=== PATIENT | male | born 1960 | race Caucasian/White ===

== ENCOUNTER 2020-06-19 06:33 | Emergency (ER) | payer MEDICARE, OTHER ==
[~2020-06-19] VITALS: Ht 175.3 cm; Wt 83.0 kg
[2020-06-19 06:33] VITALS: BP 168/70
[~2020-06-19 06:33] MED LIST: INSU100C4 SQ; INSU100V8 SQ; LEVO25TA55 PO; METF10007 PO
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
--- NOTE | 2020-06-19 07:02 | RAD ---
AP chest. HISTORY: Short of air, dialysis patient AP view was taken of the chest. Heart is enlarged. There are stents in the brachiocephalic and subclavian vessels on the right. There are small effusions. There is hazy infiltrates or pulmonary edema in the lungs. IMPRESSION: 1. Cardiomegaly. 2. Small pleural effusions. 3. Hazy infiltrates or pulmonary edema. Electronically signed by: Kamar Ibarra MD (06/19/2020 6:59 AM) [id number]
[2020-06-19 07:43] LABS: ALBUMIN 2.9 g/dL (3.4-5.0); ALBUMIN/GLOBULIN RATIO 0.8 (1.0-1.7); CALCIUM 8.8 mg/dL (8.5-10.1); CREATININE 4.5 mg/dL (0.7-1.3); GFR 13.5; POTASSIUM 3.7 mmol/L (3.5-5.1); TOTAL BILIRUBIN 0.6 mg/dL (0.2-1.0); TOTAL PROTEIN 6.5 g/dL (6.4-8.2)
[2020-06-19 07:44] LABS: HEMOGLOBIN 8.1 g/dL (13.0-17.5); RED BLOOD COUNT 2.66 x10^6/uL (4.30-5.70); WHITE BLOOD COUNT 5.6 x10^3/uL (4.0-11.0)
[2020-06-19 07:45] LABS: RED CELL DISTRIBUTION WIDTH 19.3 % (11.5-14.5)
== END 2020-06-19 09:24 | disposition home or self-care (01) ==
LOC: ER 06:33
DX: T20.14XA Burn of first degree of nose (septum), initial encounter (principal); X08.8XXA Exposure to other specified smoke, fire and flames, initial encounter; Y93.89 Activity, other specified; Y92.89 Other specified places as the place of occurrence of the external cause; Y99.8 Other external cause status; R06.02 Shortness of breath; J81.1 Chronic pulmonary edema; E11.9 Type 2 diabetes mellitus without complications; F17.210 Nicotine dependence, cigarettes, uncomplicated; Z99.2 Dependence on renal dialysis; Z20.828 Contact with and (suspected) exposure to other viral communicable diseases
CPT/HCPCS: 36415; 71045; 80053; 85027; 87426; 99284; C9803; U0003

== ENCOUNTER 2020-06-20 17:34 | Emergency (ER) | payer MEDICARE ==
[~2020-06-20] VITALS: Ht 175.3 cm; Wt 80.1 kg
[2020-06-20] MEDS ORDERED: 0.9 % SODIUM CHLORIDE 10 ML DISP.SYRIN. IV PRN (17:45)
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
[2020-06-20] MEDS ORDERED: ACETAMINOPHEN 500 MG TABLET PO ONE (18:00)
[2020-06-20 18:14] LABS: BASO % 1 % (0-3); EOS % 0 % (0-3); HEMATOCRIT 22.7 % (39.0-53.0); HEMOGLOBIN 7.5 g/dL (13.0-17.5); LYMPH # 0.4 x10^3/uL (1.0-4.8); LYMPH % 6 % (24-48); MEAN CORPUSCULAR HEMOGLOBIN 31 pg (25-35); MEAN CORPUSCULAR HGB CONC 33 g/dL (31-37); MEAN CORPUSCULAR VOLUME 94 fL (79-100); MONO # 0.4 x10^3/uL (0.0-1.1); MONO % 7 % (0-9); NEUT # 5.5 x10^3uL (1.8-7.7); NEUT % 87 % (31-73); PLATELET COUNT 113 x10^3/uL (140-400); RED BLOOD COUNT 2.41 x10^6/uL (4.30-5.70); WHITE BLOOD COUNT 6.4 x10^3/uL (4.0-11.0)
[2020-06-20 18:16] LABS: ANION GAP 9 (6-14); BLOOD UREA NITROGEN 15 mg/dL (8-26); BUN/CREATININE RATIO 4 (6-20); CARBON DIOXIDE 28 mmol/L (21-32); CHLORIDE 99 mmol/L (98-107); CREATININE 3.8 mg/dL (0.7-1.3); GFR 16.4; GLUCOSE 206 mg/dL (70-99); POTASSIUM 4.2 mmol/L (3.5-5.1); SODIUM 136 mmol/L (136-145)
[2020-06-20 18:33] LABS: ALBUMIN 2.6 g/dL (3.4-5.0); ALBUMIN/GLOBULIN RATIO 0.8 (1.0-1.7); ALK PHOS 156 U/L (46-116); ALT (SGPT) 10 U/L (16-63); AST (SGOT) 19 U/L (15-37); MAGNESIUM 1.8 mg/dL (1.8-2.4); TOTAL BILIRUBIN 1.1 mg/dL (0.2-1.0); TOTAL PROTEIN 5.9 g/dL (6.4-8.2)
--- NOTE | 2020-06-20 18:47 | RAD ---
INDICATION: Reason: weakness / Spl. Instructions: / History: COMPARISON: March 01, 2018 TECHNIQUE: Axial CT images obtained through the head without intravenous contrast. One or more of the following individualized dose reduction techniques were utilized for this examination: 1. Automated exposure control; 2. Adjustment of the mA and/or kV according to patient size; 3. Use of iterative reconstruction technique. FINDINGS: No intracranial hemorrhage. No midline shift. Basal cisterns patents. Ventricles and sulci are globally prominent. No acute osseous abnormality. Partial opacification of the left mastoid air cells. Scattered foci of low attenuation within the white matter. IMPRESSION: 1. No acute intracranial hemorrhage. 2. Scattered regions of low attenuation within the white matter. Non-specific in nature but frequently secondary to small vessel ischemic disease. If there is concern for acute causes clinically MRI could better assess acuity. 3. Prominence of ventricles and sulci which is frequently secondary to age related volume loss. Electronically signed by: Braden Bhandari MD (06/20/2020 6:44 PM) [id number]
--- NOTE | 2020-06-20 19:06 | RAD ---
Exam: Chest one view INDICATION: Weakness, patient on dialysis TECHNIQUE: Frontal view of the chest Comparisons: 06/19/2020 FINDINGS: Heart is mildly enlarged. Pulmonary vessels are within normal limits. Patchy bibasilar airspace disease. Small bilateral pleural effusions IMPRESSION: Patchy bibasilar airspace disease, similar to prior exam. Electronically signed by: Geovanna Fitch MD (06/20/2020 7:04 PM) [facility]
[2020-06-20 23:57] VITALS: BP 120/57
--- NOTE | 2020-06-21 15:19 | NUR ---
IP: notified IP at [facility] of COVID result.
== END 2020-06-21 00:28 | disposition short-term general hospital (02) ==
LOC: ER 17:34
DX: R50.9 Fever, unspecified (principal); B96.1 Klebsiella pneumoniae [K. pneumoniae] as the cause of diseases classified elsewhere; Z20.828 Contact with and (suspected) exposure to other viral communicable diseases; E11.22 Type 2 diabetes mellitus with diabetic chronic kidney disease; N18.6 End stage renal disease; R53.1 Weakness; J44.9 Chronic obstructive pulmonary disease, unspecified; F17.210 Nicotine dependence, cigarettes, uncomplicated; L97.529 Non-pressure chronic ulcer of other part of left foot with unspecified severity; Z99.2 Dependence on renal dialysis
CPT/HCPCS: 36415; 70450; 71045; 80053; 82553; 83605; 83735; 83880; 84443; 84484; 85025; 85610; 85730; 87040; 87077; 87205; 99285; C9803; U0003

== ENCOUNTER 2020-06-29 13:30 | Emergency (ER) | payer MEDICARE ==
[~2020-06-29] VITALS: Ht 175.3 cm; Wt 80.1 kg
--- NOTE | 2020-06-29 13:55 | PHYS DOC ---
Past History Past Medical History: COPD, Diabetes, Renal Failure Past Surgical History: No Surgical History Smoking: Cigarettes Alcohol Use: None Drug Use: None Adult General Chief Complaint Chief Complaint: ALTERED MENTAL STATUS HPI HPI Patient is a 60yo male who presents for decreased mental status. History is provided by EMS given patient mentation. They report patient was recently discharged from [facility] for unknown condition to fpc. Local provider was on scene today when staff reported decreased level of consciousness prompting them to call EMS for transport to our facility. On arrival, patient's vitals were remarkable for hypotension ~90s/50s, bradycardia ~50s, and hypoxia in the 80s, it is unknown if patient typically uses supplemental oxygen. He is presumably a full code Review of Systems Review of Systems Fourteen body systems of review of systems have been reviewed. See HPI for pertinent positives and negative responses, other jones all other systems are negative, non-pertinent or non-contributory Allergies Allergies Allergies Coded Allergies Type Severity Reaction Last Updated Verified No Known Drug Allergies 11/23/13 No Physical Exam Physical Exam Constitutional: Poor hygiene, GCS 10 and maintaining airway, HENT: Normocephalic, atraumatic, bilateral external ears normal, oropharynx moist, poor dentition, no oral exudates, nose normal. Eyes: PERRLA, EOMI, conjunctiva normal, no discharge. Neck: Normal range of motion, no tenderness, supple, no stridor. Cardiovascular: Heart rate bradycardic, sinus rhythm, no murmurs rubs or gallops Lungs & Thorax: Inc work of breathing, mild resp distress with accessory muscle use of neck and upper abdomen noted Abdomen: Bowel sounds normal, soft, no tenderness, no masses, no pulsatile masses. Nonsurgical abdomen, no peritoneal signs Skin: Warm, dry, no erythema, no rash. Back: No tenderness, no CVA tenderness. Extremities: No tenderness, no cyanosis, no clubbing, ROM intact, no edema. RUE HD fistula noted Neurologic: Alert and oriented X 3, grossly normal motor & sensory function, no focal deficits noted. Psychologic: Affect normal, judgement normal, mood normal. Current Patient Data Vital Signs Vital Signs Date Time Temp Pulse Resp B/P (MAP) Pulse Ox O2 Delivery O2 Flow Rate FiO2 06/29/20 18:00 44 16 112/56 (74) 100 BiPAP/CPAP 06/29/20 16:30 15.0 06/29/20 13:30 97.0 Lab Results Laboratory Tests Test 06/29/20 13:51 06/29/20 15:02 White Blood Count 6.6 x10^3/uL (4.0-11.0) Red Blood Count 2.30 x10^6/uL (4.30-5.70) Hemoglobin 7.0 g/dL (13.0-17.5) Hematocrit 22.0 % (39.0-53.0) Mean Corpuscular Volume 96 fL (79-100) Mean Corpuscular Hemoglobin 31 pg (25-35) Mean Corpuscular Hemoglobin Concent 32 g/dL (31-37) Red Cell Distribution Width 18.3 % (11.5-14.5) Platelet Count 103 x10^3/uL (140-400) Neutrophils (%) (Auto) 69 % (31-73) Lymphocytes (%) (Auto) 16 % (24-48) Monocytes (%) (Auto) 9 % (0-9) Eosinophils (%) (Auto) 3 % (0-3) Basophils (%) (Auto) 2 % (0-3) Neutrophils # (Auto) 4.5 x10^3uL (1.8-7.7) Lymphocytes # (Auto) 1.0 x10^3/uL (1.0-4.8) Monocytes # (Auto) 0.6 x10^3/uL (0.0-1.1) Eosinophils # (Auto) 0.2 x10^3/uL (0.0-0.7) Basophils # (Auto) 0.2 x10^3/uL (0.0-0.2) Bedside Venous pH 7.45 (7.32-7.42) Bedside Venous pCO2 45 mmHg (41-51) Bedside Venous pO2 132 mmHg (20-40) Venous Blood HCO3 31 mmol/L (24-28) POC Venous O2 Saturation (Aaron) 99 % Bedside FiO2 100 Sodium Level 137 mmol/L (136-145) Potassium Level 3.4 mmol/L (3.5-5.1) Chloride Level 98 mmol/L (98-107) Carbon Dioxide Level 32 mmol/L (21-32) Anion Gap 7 (6-14) Blood Urea Nitrogen 24 mg/dL (8-26) Creatinine 4.2 mg/dL (0.7-1.3) Estimated GFR (Cockcroft-Gault) 14.6 BUN/Creatinine Ratio 6 (6-20) Glucose Level 67 mg/dL (70-99) Lactic Acid Level 1.1 mmol/L (0.4-2.0) Calcium Level 9.5 mg/dL (8.5-10.1) Phosphorus Level 2.5 mg/dL (2.6-4.7) Magnesium Level 2.2 mg/dL (1.8-2.4) Total Bilirubin 0.8 mg/dL (0.2-1.0) Aspartate Amino Transf (AST/SGOT) 17 U/L (15-37) Alanine Aminotransferase (ALT/SGPT) 20 U/L (16-63) Alkaline Phosphatase 788 U/L (46-116) Ammonia < 10 mcmol/L (11-34) Creatine Kinase 16 U/L (39-308) Troponin I Quantitative < 0.017 ng/mL (0-0.055) LA-Sag-Z-Type Natriuretic Peptide > 50258 pg/mL (0-124) Total Protein 6.0 g/dL (6.4-8.2) Albumin 2.4 g/dL (3.4-5.0) Albumin/Globulin Ratio 0.7 (1.0-1.7) Salicylates Level < 2.8 mg/dL (2.8-20.0) Salicylate Last Dose Date 1400 Salicylate Last Dose Time 06/29/20 Acetaminophen Level < 2.0 mcg/mL (10-30) Acetaminophen Last Dose Date 1400 Acetaminophen Last Dose Time 06/29/2020 Ethyl Alcohol Level < 10 mg/dL (0-10) Glucose (Fingerstick) 169 mg/dL (70-99) EKG EKG EKG ordered and interpreted by myself at 1354 hrs. as sinus bradycardia at 55 bpm, prolonged QTC at 483, right axis deviation, right bundle branch block, no STEMI Radiology/Procedures Radiology/Procedures PROCEDURE: PORTABLE CHEST 1V PORTABLE CHEST 1V INDICATION: AMS . COMPARISON STUDY: 06/20/2020. FINDINGS: Lungs: Normal lung volume. Progression of patchy bilateral heterogeneous opacities. Indistinct central vasculature. Pleura: Small bilateral pleural effusions. Heart and Mediastinum: Cardiomegaly. Atherosclerotic thoracic aorta. IMPRESSION: 1. Progression of patchy bilateral heterogeneous opacities, likely pulmonary edema or multifocal infection. 2. Small bilateral pleural effusions. Electronically signed by: Jun Boo MD (06/29/2020 2:23 PM) [id number] Heart Score Risk Factors: Risk Factors: DM, Current or recent (<one month) smoker, HTN, HLP, family history of CAD, obesity. Risk Scores: Risk Factors: DM, Current or recent (<one month) smoker, HTN, HLP, family history of CAD, obesity. Course & Med Decision Making Course & Med Decision Making Pertinent Labs and Imaging studies reviewed. (See chart for details) Patient stabilized and condition improved greatly following administration of Bipap and IV Lasix Concern for fluid overload vs infectious process and so, Rocephin and Azithromycin administered. Case discussed with Dr. Rider, hospitalist at [facility] who recently cared for and discharged patient, was able to update me on patient's PMH and recent events. Joint decision to transfer patient back to [facility] for continued medical care and nephrology consultation as patient likely suffering from fluid overload that will resolve with HD Patient updated on this plan of care and amenable. All questions and concerns addressed prior to ED departure in stable condition Dragon Disclaimer Dragon Disclaimer This electronic medical record was generated, in whole or in part, using a voice recognition dictation system. Departure Departure: Impression: Primary Impression: Acute respiratory distress Additional Impressions: Pneumonia End stage kidney disease Disposition: 02 DC/TRF OTHER SHORT TERM HOS ([facility]) Admitting Physician: Other (dr rider) Condition: STABLE Referrals: SRAVANTHI MEJÍA MD (PCP) Problem Qualifiers THONY KHAN DO Jun 29, 2020 13:55
[2020-06-29 14:21] LABS: BASO # 0.2 x10^3/uL (0.0-0.2); BASO % 2 % (0-3); EOS # 0.2 x10^3/uL (0.0-0.7); EOS % 3 % (0-3); LYMPH % 16 % (24-48); MEAN CORPUSCULAR HEMOGLOBIN 31 pg (25-35); MEAN CORPUSCULAR HGB CONC 32 g/dL (31-37); MEAN CORPUSCULAR VOLUME 96 fL (79-100); MONO # 0.6 x10^3/uL (0.0-1.1); MONO % 9 % (0-9); NEUT # 4.5 x10^3uL (1.8-7.7); NEUT % 69 % (31-73); PLATELET COUNT 103 x10^3/uL (140-400); RED CELL DISTRIBUTION WIDTH 18.3 % (11.5-14.5); WHITE BLOOD COUNT 6.6 x10^3/uL (4.0-11.0)
--- NOTE | 2020-06-29 14:23 | EKG ---
[facility] ED [facility] [address] [place] [id number] Test Date: 2020-06-29 Test Time: 13:49:14 Pat Name: NOA BRUSH Department: Room: Gender: M Flow Manager: : 1960 Requested By: THONY KHAN Order Number: [id number] Reading MD: Dany Brown Measurements Intervals [place] Rate: 55 P: UT: QRS: 253 QRSD: 138 T: -3 QT: 502 QTc: 483 Interpretive Statements IRREGULAR RHYTHM, NO P-WAVE FOUND LEFT ANTERIOR FASCICULAR BLOCK RIGHT BUNDLE BRANCH BLOCK ABNORMAL ECG Electronically Signed On 07-02-2020 10:55:41 [employer] by Dany Brown
[2020-06-29 14:26] LABS: ANION GAP 7 (6-14); BLOOD UREA NITROGEN 24 mg/dL (8-26); BUN/CREATININE RATIO 6 (6-20); CALCIUM 9.5 mg/dL (8.5-10.1); CARBON DIOXIDE 32 mmol/L (21-32); CHLORIDE 98 mmol/L (98-107); CREATININE 4.2 mg/dL (0.7-1.3); GFR 14.6; GLUCOSE 67 mg/dL (70-99); POTASSIUM 3.4 mmol/L (3.5-5.1); SODIUM 137 mmol/L (136-145)
--- NOTE | 2020-06-29 14:26 | RAD ---
PORTABLE CHEST 1V INDICATION: AMS . COMPARISON STUDY: 06/20/2020. FINDINGS: Lungs: Normal lung volume. Progression of patchy bilateral heterogeneous opacities. Indistinct central vasculature. Pleura: Small bilateral pleural effusions. Heart and Mediastinum: Cardiomegaly. Atherosclerotic thoracic aorta. IMPRESSION: 1. Progression of patchy bilateral heterogeneous opacities, likely pulmonary edema or multifocal infection. 2. Small bilateral pleural effusions. Electronically signed by: Jun Boo MD (06/29/2020 2:23 PM) [id number]
[2020-06-29 14:39] LABS: ALBUMIN 2.4 g/dL (3.4-5.0); ALBUMIN/GLOBULIN RATIO 0.7 (1.0-1.7); ALK PHOS 788 U/L (46-116); ALT (SGPT) 20 U/L (16-63); AST (SGOT) 17 U/L (15-37); MAGNESIUM 2.2 mg/dL (1.8-2.4); PHOSPHORUS 2.5 mg/dL (2.6-4.7); TOTAL BILIRUBIN 0.8 mg/dL (0.2-1.0)
[2020-06-29 14:45] LABS: ACETAMIN < 2.0 mcg/mL (10-30); ETHANOL < 10 mg/dL (0-10); SALIC < 2.8 mg/dL (2.8-20.0)
[2020-06-29] MEDS ORDERED: DEXTROSE 50% 25 GM / 50ML DISP.SYRIN. IV ONE ×3 (14:45→14:46)
[2020-06-29] MEDS ORDERED: AZITHROMYCIN 500 MG in IV NORMAL SALINE 250ML 250 ML IV ONE (14:45)
[2020-06-29] MEDS ORDERED: IV NORMAL SALINE 100ML 100 ML ONE (15:18)
[2020-06-29] MEDS ORDERED: FUROSEMIDE 40 MG/4 ML VIAL IVP ONE (16:15)
[2020-06-29] MEDS ORDERED: IV NORMAL SALINE 250ML 250 ML ONE (16:54)
[2020-06-29] MEDS ORDERED: AZITHROMYCIN 500 MG VIAL. IV ONE (16:54)
[2020-06-29 18:00] VITALS: BP 112/56
== END 2020-06-29 18:29 | disposition short-term general hospital (02) ==
LOC: ER 13:30
DX: R06.03 Acute respiratory distress (principal); J18.9 Pneumonia, unspecified organism; E11.22 Type 2 diabetes mellitus with diabetic chronic kidney disease; N18.6 End stage renal disease; J44.9 Chronic obstructive pulmonary disease, unspecified; F17.210 Nicotine dependence, cigarettes, uncomplicated
CPT/HCPCS: 36415; 51702; 71045; 80053; 80329; 82140; 82550; 82803; 82947; 83605; 83735; 83880; 84100; 84484; 85025; 93005; 94660; 96365; 96368; 96375; 99285; G0480; J0456; J0696; J1940; J7050

== ENCOUNTER → 2021-04-29 | Outpatient (CLI) | payer MEDICARE, OTHER ==
--- NOTE | 2021-04-29 18:16 | RAD ---
INDICATION: Reason: LT LEG PAIN / Spl. Instructions: / History: COMPARISON: None. TECHNIQUE: Grayscale, color and doppler ultrasound images were obtained of the left lower extremity v enous vasculature. LEFT: No thrombus identified in the common femoral vein, femoral vein, popliteal vein or visualized calf ve ins. There is some slow flow seen within the common femoral vein with either a bowel or some linear s carring IMPRESSION: * No thrombus identified in deep venous system of the left lower extremity. * Lymph nodes in the left groin measuring 25 x 15 x 7 mm with prominent cortex. This is mildly promi nent in size * Incidental note of calcific atherosclerosis which is not formally evaluated on this examination. Electronically signed by: Braden Bhandari MD (04/29/2021 6:13 PM) [id number]
== END ==
LOC: US 17:23
PROVIDERS: ATTEND Family Medicine
DX: M79.605 Pain in left leg (principal)
CPT/HCPCS: 93971

== ENCOUNTER 2021-04-30 11:37 | Emergency (ER) | payer MEDICARE, OTHER ==
[~2021-04-30] VITALS: Ht 175.3 cm; Wt 80.1 kg
[2021-04-30] MEDS ORDERED: HYDROcodone/APAP 5/325MG 1 TAB TABLET PO ONE (12:00)
--- NOTE | 2021-04-30 12:01 | PHYS DOC ---
Past History Past Medical History: COPD, Diabetes, Renal Failure Past Surgical History: No Surgical History Smoking: Cigarettes Alcohol Use: None Drug Use: None Adult General HPI HPI Patient is a 61-year-old male presenting for hip pain. Reports last week without any known inciting event, trauma or known mechanism of injury having left hip pain. He has been at home receiving home health and getting up and ambulating on left hip but reports excruciating focal pain to his left hip. He was seen yesterday in the outpatient setting for a DVT rule out, his lower extremity Doppler was unremarkable. He presented today as an outpatient CT scan of his hip that showed an acute left femoral neck fracture. I was notified by instructional technology coach about this finding and all in favor for seeing patient in ER for formal evaluation and transfer for higher acuity of care. During my work-up, patient reports he is a end-stage renal dialysis patient and attends dialysis Fridays, last dialysis session was on Wednesday. States he has ongoing left focal hip pain, also reports having right shoulder pain. States he thinks he fell on this March 17 Review of Systems Review of Systems Fourteen body systems of review of systems have been reviewed. See HPI for pertinent positives and negative responses, other jones all other systems are negative, non-pertinent or non-contributory Current Medications Current Medications Current Medications Medications (Trade) Dose Ordered Sig/Shy Start Time Stop Time Status Last Admin Dose Admin Acetaminophen/ Hydrocodone Bitart (Lortab 5/325) 1 tab 1X ONCE 04/30/21 12:00 04/30/21 12:01 Allergies Allergies Allergies Coded Allergies Type Severity Reaction Last Updated Verified No Known Drug Allergies 11/23/13 No Physical Exam Physical Exam Constitutional: Pt is oriented to person, place, and time. Appears older than stated age, unhygienic appearing HEENT: Head: Normocephalic and atraumatic. External ears unremarkable negative merritt sign Conjunctivae and EOM are normal. Pupils are equal, round, and reactive to light. Oropharynx is clear and dry No hematomas or lacerations or abrasions to face or scalp OP clear, no blood, no malocclusion, dentition intact Nares clear, no nasal septal hematoma Midface stable Neck: C-spine midline nontender, no step-offs Cardiovascular: Normal rate, regular rhythm and normal heart sounds. Pulmonary/Chest: Effort normal and breath sounds normal. No respiratory distress. No wheezes. CTA bilaterally Abdominal: Soft. Bowel sounds are normal. Pt exhibits no distension. There is no tenderness. Musculoskeletal: Bony tenderness present to left hip in addition to right shoulder with palpable bruit over AV fistula of right upper extremity Chest wall stable Pelvis stable but left lateral aspect of hip tender to palpation No vertebral TTP and spine without stepoffs Neurological: Pt is alert and oriented to person, place, and time. Moving all extremities willfully, able to wiggle all fingers and toes Alert and oriented x 3 Motor and sensory function intact No saddle anesthesia Skin: Skin is warm and dry. No abrasions, no lacerations Psychiatric: Behavior is appropriate for situation Current Patient Data Vital Signs Vital Signs Date Time Temp Pulse Resp B/P (MAP) Pulse Ox O2 Delivery O2 Flow Rate FiO2 04/30/21 12:06 98.0 69 16 156/70 100 Nasal Cannula 4.0 Vital Signs Date Time Temp Pulse Resp B/P (MAP) Pulse Ox O2 Delivery O2 Flow Rate FiO2 04/30/21 12:06 98.0 69 16 156/70 100 Nasal Cannula 4.0 Lab Results Laboratory Tests Test 04/30/21 12:53 04/30/21 14:35 White Blood Count 10.2 x10^3/uL Red Blood Count 2.49 x10^6/uL Hemoglobin 8.0 g/dL Hematocrit 24.3 % Mean Corpuscular Volume 97 fL Mean Corpuscular Hemoglobin 32 pg Mean Corpuscular Hemoglobin Concent 33 g/dL Red Cell Distribution Width 18.7 % Platelet Count 195 x10^3/uL Neutrophils (%) (Auto) 75 % Lymphocytes (%) (Auto) 12 % Monocytes (%) (Auto) 10 % Eosinophils (%) (Auto) 4 % Basophils (%) (Auto) 1 % Neutrophils # (Auto) 7.6 x10^3uL Lymphocytes # (Auto) 1.2 x10^3/uL Monocytes # (Auto) 1.0 x10^3/uL Eosinophils # (Auto) 0.4 x10^3/uL Basophils # (Auto) 0.1 x10^3/uL Sodium Level 138 mmol/L Potassium Level 3.5 mmol/L Chloride Level 99 mmol/L Carbon Dioxide Level 31 mmol/L Anion Gap 8 Blood Urea Nitrogen 36 mg/dL Creatinine 5.2 mg/dL Estimated GFR (Cockcroft-Gault) 11.4 BUN/Creatinine Ratio 7 Glucose Level 100 mg/dL Calcium Level 8.0 mg/dL Phosphorus Level 3.7 mg/dL Magnesium Level 1.8 mg/dL Total Bilirubin 0.7 mg/dL Aspartate Amino Transf (AST/SGOT) 15 U/L Alanine Aminotransferase (ALT/SGPT) 18 U/L Alkaline Phosphatase 190 U/L Total Protein 5.9 g/dL Albumin 2.3 g/dL Albumin/Globulin Ratio 0.6 SARS-CoV-2 Antigen (Rapid) Negative Current Medications Medications (Trade) Dose Ordered Sig/Shy Route PRN Reason Start Time Stop Time Status Last Admin Dose Admin Acetaminophen/ Hydrocodone Bitart (Lortab 5/325) 1 tab 1X ONCE PO 04/30/21 12:00 04/30/21 12:16 DC EKG EKG [] Radiology/Procedures Radiology/Procedures AP chest one view, right shoulder 3 views HISTORY: Right shoulder pain AP view was taken of the chest. There are stents in subclavian and axillary vessels on the right. Heart is enlarged. There is scarring in the left lung. Th ere is blunting of the costophrenic angles from small pleural effusions or pleural thickening. There are no confluent infiltrates. IMPRESSION: 1. Pleural thickening or pleural effusions. 2. Scarring on the left. 3. No other acute infiltrates. End impression Right shoulder 3 views. 3 views were taken of the right shoulder. There is a displaced angulated fracture the proximal humerus. There is soft tissue calcifications, fracture appears subacute, pathologic fracture would be possible. IMPRESSION: 1. Angulated displaced fracture proximal right humerus which appears subacute. Electronically signed by: Kamar Ibarra MD (04/30/2021 12:42 PM) [facility] /////////////////////////////// CT LOWER LEFT EXTREMITY WITHOUT CONTRAST History: Reason: left leg pain, fall 3 days ago / Spl. Instructions: / History: Comparison: None. Technique: Noncontrast CT imaging was performed of the left hip. Coronal and sagittal reconstructions were performed. Exposure: One or more of the following individualized dose reduction techniques were utilized for this examination: 1. Automated exposure control 2. Adjustment of the mA and/or kV according to patient size 3. Use of iterative reconstruction technique. Findings: Acute left femoral neck fracture with displacement superior riding of posterior angulation of the distal fracture fragment. There small fracture fragments within the joint. Left hip joint effusion. Mild posterior upper leg subcutaneous edema. Extensive atheromatous plaque. Moderate colonic stool burden. Mild urinary bladder wall thickening. Small knee joint effusion. Mild knee degenerative changes. Impression: 1. Acute left femoral neck displaced fracture. 2. Mild urinary bladder wall thickening, may relate to nondistention or chronic outlet obstruction. Correlate for cystitis. Electronically signed by: Isiah Lee DO (04/30/2021 11:23 AM) [facility] Heart Score C/O Chest Pain: No HEART Score for Chest Pain: HEART Score for Chest Pain Response (Comments) Value Age > 65 2 Risk Factors >3 Risk Factors or Hx CAD 2 Total 4 Risk Factors: Risk Factors: DM, Current or recent (<one month) smoker, HTN, HLP, family history of CAD, obesity. Risk Scores: Risk Factors: DM, Current or recent (<one month) smoker, HTN, HLP, family history of CAD, obesity. Course & Med Decision Making Course & Med Decision Making Vitals stable. HPI, physical exam and comprehensive ER work-up concerning for subacute right humeral fracture, acute left femoral neck fracture, and patient who is typically Wednesday dialysis who has not yet had dialysis Patient denies any history of cancer, no other known bone conditions such as osteoporosis. I disclosed need for hospital transfer to [facility] and they were amenable I contacted orthopedic services at [facility] and they recommended need for transfer for evaluation of left hip. Given appearance of right shoulder, it is unclear if this was trauma related versus other underlying process such as malignancy. This will require further work-up I contacted hospitalist at [facility] and reviewed need for hospital transfer, they agreed and accepted patient transfer under their care All questions and concerns patient and significant other at bedside had were a ddressed prior to hospital transfer Tiffany Disclaimer Chloéon Disclaimer This electronic medical record was generated, in whole or in part, using a voice recognition dictation system. Departure Departure: Impression: Primary Impression: Closed left hip fracture Additional Impressions: Closed right scapular fracture ESRD (end stage renal disease) on dialysis Disposition: 02 SHORT TERM [facility]OSPITAL ([facility] Admitting Physician: Other (dr martinez) Condition: STABLE Referrals: SRAVANTHI MEJÍA MD (PCP) Problem Qualifiers THONY KHAN DO Apr 30, 2021 12:01
[2021-04-30 12:06] VITALS: BP 156/70
--- NOTE | 2021-04-30 12:45 | RAD ---
AP chest one view, right shoulder 3 views HISTORY: Right shoulder pain AP view was taken of the chest. There are stents in subclavian and axillary vessels on the right. Hea rt is enlarged. There is scarring in the left lung. There is blunting of the costophrenic angles from small pleural effusions or pleural thickening. There are no confluent infiltrates. IMPRESSION: 1. Pleural thickening or pleural effusions. 2. Scarring on the left. 3. No other acute infiltrates. End impression Right shoulder 3 views. 3 views were taken of the right shoulder. There is a displaced angulated fracture the proximal humeru s. There is soft tissue calcifications, fracture appears subacute, pathologic fracture would be possi ble. IMPRESSION: 1. Angulated displaced fracture proximal right humerus which appears subacute. Electronically signed by: Kamar Ibarra MD (04/30/2021 12:42 PM) [facility]
[2021-04-30 13:15] LABS: BASO # 0.1 x10^3/uL (0.0-0.2); BASO % 1 % (0-3); EOS # 0.4 x10^3/uL (0.0-0.7); EOS % 4 % (0-3); HEMATOCRIT 24.3 % (39.0-53.0); LYMPH # 1.2 x10^3/uL (1.0-4.8); LYMPH % 12 % (24-48); MEAN CORPUSCULAR HEMOGLOBIN 32 pg (25-35); MEAN CORPUSCULAR HGB CONC 33 g/dL (31-37); MEAN CORPUSCULAR VOLUME 97 fL (79-100); MONO % 10 % (0-9); NEUT # 7.6 x10^3uL (1.8-7.7); NEUT % 75 % (31-73); PLATELET COUNT 195 x10^3/uL (140-400); RED BLOOD COUNT 2.49 x10^6/uL (4.30-5.70); RED CELL DISTRIBUTION WIDTH 18.7 % (11.5-14.5); WHITE BLOOD COUNT 10.2 x10^3/uL (4.0-11.0)
[2021-04-30 13:27] LABS: CREATININE 5.2 mg/dL (0.7-1.3); GFR 11.4; POTASSIUM 3.5 mmol/L (3.5-5.1)
[2021-04-30 13:32] LABS: ALBUMIN 2.3 g/dL (3.4-5.0); ALBUMIN/GLOBULIN RATIO 0.6 (1.0-1.7); MAGNESIUM 1.8 mg/dL (1.8-2.4); PHOSPHORUS 3.7 mg/dL (2.6-4.7); TOTAL BILIRUBIN 0.7 mg/dL (0.2-1.0); TOTAL PROTEIN 5.9 g/dL (6.4-8.2)
[2021-04-30] MEDS ORDERED: MORPHINE SULFATE 10 MG/ML SYRINGE. ONE (21:51)
[2021-04-30] MEDS: MORPHINE SULFATE 10 MG/ML SYRINGE. SQ ONE (21:53)
== END 2021-04-30 22:03 | disposition short-term general hospital (02) ==
LOC: ER 11:37
DX: S72.002A Fracture of unspecified part of neck of left femur, initial encounter for closed fracture (principal); S42.101A Fracture of unspecified part of scapula, right shoulder, initial encounter for closed fracture; E11.22 Type 2 diabetes mellitus with diabetic chronic kidney disease; N18.6 End stage renal disease; F17.210 Nicotine dependence, cigarettes, uncomplicated; Z20.822 Contact with and (suspected) exposure to COVID-19; X58.XXXA Exposure to other specified factors, initial encounter; Y93.89 Activity, other specified; Y92.89 Other specified places as the place of occurrence of the external cause; Y99.8 Other external cause status
CPT/HCPCS: 36415; 71045; 73030; 80053; 83735; 84100; 85025; 87426; 96372; 99285; C9803; J2270; U0003

== ENCOUNTER → 2021-04-30 | Outpatient (CLI) | payer MEDICARE, OTHER ==
--- NOTE | 2021-04-30 11:25 | RAD ---
CT LOWER LEFT EXTREMITY WITHOUT CONTRAST History: Reason: left leg pain, fall 3 days ago / Spl. Instructions: / History: Comparison: None. Technique: Noncontrast CT imaging was performed of the left hip. Coronal and sagittal reconstructions were performed. Exposure: One or more of the following individualized dose reduction techniques were utilized for thi s examination: 1. Automated exposure control 2. Adjustment of the mA and/or kV according to patient size 3. Use of iterative reconstruction technique. Findings: Acute left femoral neck fracture with displacement superior riding of posterior angulation of the dis yeni fracture fragment. There small fracture fragments within the joint. Left hip joint effusion. Mild posterior upper leg subcutaneous edema. Extensive atheromatous plaque. Moderate colonic stool burden. Mild urinary bladder wall thickening. S mall knee joint effusion. Mild knee degenerative changes. Impression: 1. Acute left femoral neck displaced fracture. 2. Mild urinary bladder wall thickening, may relate to nondistention or chronic outlet obstruction. Correlate for cystitis. Electronically signed by: Isiah Lee DO (04/30/2021 11:23 AM) [id number]
== END ==
LOC: CT 10:28
PROVIDERS: ATTEND Family Medicine
DX: S72.002A Fracture of unspecified part of neck of left femur, initial encounter for closed fracture (principal); M17.12 Unilateral primary osteoarthritis, left knee; M25.462 Effusion, left knee; M25.452 Effusion, left hip; M21.852 Other specified acquired deformities of left thigh; N30.90 Cystitis, unspecified without hematuria; I70.90 Unspecified atherosclerosis; W19.XXXA Unspecified fall, initial encounter; Y93.89 Activity, other specified; Y92.89 Other specified places as the place of occurrence of the external cause; Y99.8 Other external cause status
CPT/HCPCS: 73700

== ENCOUNTER 2021-07-02 11:09 | Inpatient (IN) | payer MEDICARE, OTHER ==
[~2021-07-02] VITALS: Ht 175.3 cm; Wt 63.5 kg
[2021-07-02] MEDS ORDERED: DEXTROSE 50% 25 GM / 50ML DISP.SYRIN. IV ONE (11:30)
--- NOTE | 2021-07-02 11:44 | EKG ---
[address] [address] Test Date: 2021-07-02 Test Time: 11:21:49 Pat Name: NOA BRUSH Department: Room: Gender: M Fiber Artist: MARY : 1960 Requested By: JACKIE MORILLO Order Number: [id number] Reading MD: Kali Mccann Measurements Intervals Animas Rate: 56 P: 47 RI: 212 QRS: 245 QRSD: 152 T: 0 QT: 530 QTc: 515 Interpretive Statements SINUS RHYTHM LEFT ANTERIOR FASCICULAR BLOCK RIGHT BUNDLE BRANCH BLOCK ABNORMAL ECG Electronically Signed On 07-07-2021 10:11:36 HANDICRAFTS TEACHER by Kali Mccann
--- NOTE | 2021-07-02 11:49 | PHYS DOC ---
Past History Past Medical History: COPD, Diabetes, Renal Failure Additional Past Medical Histor: Dialysis, ulcers on feet, lung surgery Past Medical History Limited secondary to altered mental status Past Surgical History: Other Additional Past Surgical Histo: fistula Past Surgical History Limited secondary to altered mental status Smoking: Cigarettes Alcohol Use: None Drug Use: None Social History Limited secondary to altered mental status General Adult EDM: Chief Complaint: HYPOGLYCEMIA HPI: HPI: Patient is a 61-year-old male on dialysis M/W/F presents via EMS from his dialysis appointment with a hypoglycemic episode. Patient states that he took his glucose on his continuous glucose monitor at dialysis and was in the 200s. Patient reportedly had a glucose level of 22 at dialysis soon after HD had completed. Patient reportedly was given oral glucose at dialysis because they could not get an IV. Patient had some glucose tablets and a few candy bars. Blood sugar and mental status continued to decrease and therefore dialysis center called 911. Patient reportedly had a GCS of 6 according to EMS on arrival to the scene. History of present illness limited secondary to altered mental status Review of Systems: Review of Systems: Constitutional: Denies fever or chills GI: Denies vomiting Neurologic: Reports altered mental status Review of systems limited secondary to AMS. Current Medications: Current Meds: Current Medications Medications (Trade) Dose Ordered Sig/Shy Start Time Stop Time Status Last Admin Dose Admin Dextrose (Dextrose 50%-Water Syringe) 25 gm 1X ONCE 07/02/21 11:30 07/02/21 11:31 DC Allergies: Allergies: Allergies Coded Allergies Type Severity Reaction Last Updated Verified No Known Drug Allergies 11/23/13 No Physical Exam: PE: Constitutional: Well developed, disheveled appearance, alert mental status HENT: Normocephalic, atraumatic Eyes: PERRL, EOMI, conjunctiva normal, no discharge Neck: Normal range of motion, no tenderness, supple Lungs & Thorax: No respiratory distress, equal chest rise and fall Abdomen: Soft, no tenderness Skin: Warm, dry, no erythema, no rash Back: No tenderness, no CVA tenderness Extremities: No tenderness, ROM intact, no edema Neurologic: Alert and oriented x0, responding to verbal commands, Psychologic: Limited due to mental status Current Patient Data: Labs: Laboratory Tests Test 07/02/21 11:16 07/02/21 11:31 Glucose (Fingerstick) 33 mg/dL (70-99) *L 166 mg/dL (70-99) H EKG: EK: Regular rhythm with a rate of 56 bpm, normal axis, no ST changes, T wave inversions in V1, right bundle nadine branch block, ND 212ms, QRS 152ms, QT/QTc 530/515 Compared to EKG done on 06/29/2020: No significant changes Radiology/Procedures: Radiology/Procedures: PROCEDURE: CHEST AP ONLY AP chest. HISTORY: Hypoglycemia, evaluate for infection AP view of the chest was compared with a study from April 30. There are bilateral groundglass hazy infiltrates or edema which have worsened compared to the recent study. Atypical or Covid 19 pneumonia is possible. Pulmonary edema from heart failure is possible. There is a small right effusion which has mildly worsened since the prior study. The heart is enlarged. There is a subacute right proximal humerus fracture with callus but without solid fusion. IMPRESSION: 1. Cardiomegaly. 2. Bilateral hazy groundglass infiltrates or edema with worsening compared to the prior study. 3. Mild increased right pleural effusion. 4. Right proximal humerus fracture. Electronically signed by: Kamar Ibarra MD (07/02/2021 12:38 PM) [id number] DICTATED AND SIGNED BY: KAMAR IBARRA MD DATE: 07/02/21 1235 Heart Score: C/O Chest Pain: No Course & Med Decision Making: Course & Med Decision Making 61-year-old male patient comes in from dialysis appointment with hypoglycemic episode of glucose at 23. At his dialysis appointment, patient was given oral glucose because they could not get an IV at that time. Patient did finish his dialysis appointment. Patient reportedly had a GCS of 6 according to EMS they arrived on scene. On arrival to the department, patient had a glucose of 33 and a GCS of 12 (E4, V2, M6) . Patient was given an amp of D50 and and resulting glucose was 166 and GCS was 15. Patient is not complaining of any other symptoms such as chest pain, shortness of breath, nausea, vomiting, abdominal pain. Labs obtained and posted to chart. Patient does have a a low potassium and a low hemoglobin level. His potassium was 2.8. At this point we will not replete the potassium considering the patient just came from dialysis. We will monitor the patient's potassium during his preservation stay. ECG showed no acute ST changes or QT changes. Pt's hypoglycemic episode is likely due to taking too much insulin without consuming any food. However, since this is a recurring issue, the pt will need observation to assure his glucose does not drop again. Patient requiring observation for further evaluation and treatment. Discussed with Dr. Sr (hospitalist) at [facility] who is in agreement with ad mission. Discussed findings and plan with patient, who acknowledges understanding and agreement. Dragon Disclaimer: Dragon Disclaimer: This electronic medical record was generated, in whole or in part, using a voice recognition dictation system. Departure Departure: Impression: Primary Impression: Hypoglycemia Additional Impressions: History of end stage renal disease Altered mental status Qualified Codes: R41.82 - Altered mental status, unspecified Disposition: ADMITTED INPATIENT (observation) Admitting Physician: Montserrat Sr Condition: STABLE Referrals: SRAVANTHI MEJÍA MD (PCP) JACKIE MORILLO DO Jul 02, 2021 11:49
[2021-07-02 11:58] LABS: BASO # 0.1 x10^3/uL (0.0-0.2); BASO % 4 % (0-3); EOS # 0.3 x10^3/uL (0.0-0.7); EOS % 8 % (0-3); HEMATOCRIT 25.2 % (39.0-53.0); HEMOGLOBIN 8.2 g/dL (13.0-17.5); LYMPH # 0.8 x10^3/uL (1.0-4.8); LYMPH % 23 % (24-48); MEAN CORPUSCULAR HEMOGLOBIN 31 pg (25-35); MEAN CORPUSCULAR HGB CONC 32 g/dL (31-37); MEAN CORPUSCULAR VOLUME 95 fL (79-100); MONO # 0.3 x10^3/uL (0.0-1.1); MONO % 10 % (0-9); NEUT # 1.9 x10^3uL (1.8-7.7); NEUT % 55 % (31-73); PLATELET COUNT 146 x10^3/uL (140-400); RED BLOOD COUNT 2.67 x10^6/uL (4.30-5.70); RED CELL DISTRIBUTION WIDTH 21.4 % (11.5-14.5); WHITE BLOOD COUNT 3.4 x10^3/uL (4.0-11.0)
[2021-07-02 12:11] LABS: ALBUMIN 2.3 g/dL (3.4-5.0); ALBUMIN/GLOBULIN RATIO 0.6 (1.0-1.7); CALCIUM 8.5 mg/dL (8.5-10.1); CREATININE 1.6 mg/dL (0.7-1.3); GFR 44.5; MAGNESIUM 1.8 mg/dL (1.8-2.4); TOTAL BILIRUBIN 0.5 mg/dL (0.2-1.0); TOTAL PROTEIN 6.1 g/dL (6.4-8.2)
[2021-07-02 12:36] LABS: POTASSIUM 2.8 mmol/L (3.5-5.1)
--- NOTE | 2021-07-02 12:40 | RAD ---
AP chest. HISTORY: Hypoglycemia, evaluate for infection AP view of the chest was compared with a study from April 30. There are bilateral groundglass hazy infiltrates or edema which have worsened compared to the recent study. Atypical or Covid 19 pneumoni a is possible. Pulmonary edema from heart failure is possible. There is a small right effusion which has mildly worsened since the prior study. The heart is enlarged. There is a subacute right proximal humerus fracture with callus but without solid fusion. IMPRESSION: 1. Cardiomegaly. 2. Bilateral hazy groundglass infiltrates or edema with worsening compared to the prior study. 3. Mild increased right pleural effusion. 4. Right proximal humerus fracture. Electronically signed by: Kamar Ibarra MD (07/02/2021 12:38 PM) [id number]
[2021-07-02] MEDS ORDERED: DEXTROSE 50% 25 GM / 50ML DISP.SYRIN. IV PRN (13:00)
[2021-07-02 14:15] LABS: ANISOCYTOSIS PRESENT; MICROCYTOSIS PRESENT
[2021-07-02 14:17] LABS: TARGET CELLS PRESENT
[2021-07-02 14:19] LABS: PLT ESTIMATE ADEQUATE (ADEQUATE)
[2021-07-02 15:24] VITALS: BP 93/55
--- NOTE | 2021-07-02 15:58 | NUR ---
PT ARRIVED TO ROOM 113 VIA [facility]. PT HERE TO HAVE BLOOD SUGAR MONITORED UNTIL TOMORROW, PT HAS DIALYSIS MWF.
[2021-07-02] MEDS: INSULIN LISPRO 300 UNITS/3 ML VIAL. SQ SCH (17:00)
--- NOTE | 2021-07-02 17:24 | NUR ---
DR. GLASS WANTS TO HOLD ALL SHORT ACTING INSULIN FOR NOW. STATES STAFF DOESN'T NEED TO CONSULT WOUND CARE PT WILL BE D/C'D TOMORROW, OR TRANSFERRED TO [facility] IF SOMETHING HAPPENS SINCE HE GETS DIALYSIS MWF. PT HAS OLD DM WOUNDS TO LEFT BIG AND THIRD TOE. CURRENT WOUND ON LEFT HEEL WITH AQUACEL DRESSING, AND LACERATION TO LATERAL LEFT COOL WITH AQUACEL DRESSING. PICTURES TAKEN.
[2021-07-02] MEDS ORDERED: ZOLPIDEM 5 MG TABLET. PO PRN (17:30)
[2021-07-02] MEDS ORDERED: DOCUSATE SODIUM 100 MG CAPSULE PO PRN (17:30)
[2021-07-02] MEDS ORDERED: traZODone 100 MG TABLET. PO PRN (17:30)
[2021-07-02] MEDS ORDERED: ASPI-630 PO (17:40)
[2021-07-02] MEDS ORDERED: DOCU100C28 PO (17:40)
[2021-07-02] MEDS ORDERED: LEVO200T5 PO (17:40)
[2021-07-02] MEDS ORDERED: TRAZ-125 PO (17:40)
[2021-07-02] MEDS ORDERED: FURO80TA3 PO (17:40)
[2021-07-02] MEDS ORDERED: CALC200T3 PO (17:40)
[2021-07-02] MEDS ORDERED: AMLO-187 PO (17:40)
[2021-07-02] MEDS ORDERED: FERR325T14 PO (17:40)
[2021-07-02] MEDS ORDERED: OMEG1CAP50 PO (17:40)
[2021-07-02] MEDS ORDERED: ATOR10TA60 PO (17:40)
[2021-07-02] MEDS ORDERED: FOLI0.8T32 PO (17:40)
[2021-07-02] MEDS ORDERED: METO25TA2 PO (17:40)
[2021-07-02] MEDS ORDERED: INSU100C SQ (17:40)
[2021-07-02] MEDS ORDERED: IPRA3AMP29 NEB (17:40)
[2021-07-02] MEDS ORDERED: FOLI1TAB30 PO (17:40)
[2021-07-02] MEDS ORDERED: CALC667S PO ×2 (17:40)
[2021-07-02] MEDS ORDERED: [UNRECOGNIZED DRUG - CODE] PO (17:40)
[2021-07-02] MEDS ORDERED: ZOLP5TAB PO (17:40)
[2021-07-02] MEDS ORDERED: INSU100V8 SQ (17:40)
[2021-07-02] MEDS ORDERED: BUDE0.5A11 NEB (17:40)
[2021-07-02] MEDS: FUROSEMIDE 80 MG TABLET PO SCH (18:00)
[2021-07-02 19:44] VITALS: BP 98/64
[2021-07-02] MEDS: IPRATRPIUM/ALBUTEROL 0.5/2.5MG 3 ML NEBU. NEB SCH (20:00)
[2021-07-02] MEDS: BUDESONIDE 0.5 MG/2 ML NEBU NEB SCH (20:00)
[2021-07-02] MEDS ORDERED: INSULIN GLARGINE SYRINGE. SQ SCH (21:00)
[2021-07-02] MEDS ORDERED: CALCIUM CARBONATE 500 MG TAB.CHEW PO SCH (21:00)
[2021-07-02] MEDS ORDERED: ATORVASTATIN CALCIUM 10 MG TABLET. PO SCH (21:00)
[2021-07-02] MEDS: CALCIUM ACETATE 667 MG CAPSULE PO SCH (21:22)
[2021-07-02 23:23] VITALS: BP 155/68
[2021-07-03] MEDS: IPRATRPIUM/ALBUTEROL 0.5/2.5MG 3 ML NEBU. NEB SCH ×2 (05:10→12:35)
[2021-07-03] MEDS ORDERED: LEVOTHYROXINE 100 MCG TABLET PO SCH (06:00)
[2021-07-03 06:19] VITALS: BP 138/66
[2021-07-03] MEDS: INSULIN LISPRO 300 UNITS/3 ML VIAL. SQ SCH ×2 (08:00→12:00)
[2021-07-03] MEDS: CALCIUM ACETATE 667 MG CAPSULE PO SCH ×3 (08:00→12:00)
[2021-07-03] MEDS: FUROSEMIDE 80 MG TABLET PO SCH ×2 (08:45→09:00)
[2021-07-03] MEDS ORDERED: FERROUS SULFATE 325 MG TABLET. PO SCH (09:00)
[2021-07-03] MEDS ORDERED: METOPROLOL SUCC 24HR ER 25 MG TAB.ER.24H. PO SCH (09:00)
[2021-07-03] MEDS ORDERED: amLODIPine BESYLATE 10 MG TABLET PO SCH (09:00)
[2021-07-03] MEDS ORDERED: VITAMIN B COMP W C PO SCH (09:00)
[2021-07-03] MEDS ORDERED: OMEGA-3 FATTY ACIDS/FISH OIL 1,000 MG CAPSULE. PO SCH (09:00)
[2021-07-03] MEDS ORDERED: ASPIRIN CHEWABLE 81 MG TABLET. PO SCH (09:00)
[2021-07-03] MEDS ORDERED: ASCORBIC ACID 500 MG TABLET PO SCH (09:00)
[2021-07-03] MEDS ORDERED: FOLIC ACID PO SCH (09:00)
[2021-07-03] MEDS ORDERED: FOLIC/VIT B COMP W-C (RENAL) TABLET. PO SCH (09:00)
[2021-07-03 10:59] VITALS: BP 154/69
[2021-07-03 12:30] VITALS: BP 154/69
--- NOTE | 2021-07-03 12:33 | HP ---
DATE OF SERVICE: 07/03/2021 ADMIT DATE: 07/02/2021 HISTORY OF PRESENT ILLNESS: The patient is a 61-year-old male patient who presented to the Emergency Room of [facility] from the dialysis unit. He has end-stage renal failure, on hemodialysis on Wednesday, Wednesday, and Wednesday, and the patient stated that he took his glucose on his continuous glucose monitor at dialysis and was in the 200s. He reportedly had a glucose level of 22 at dialysis. Soon after hemodialysis had completed, the patient reported that he was given oral glucose at dialysis because they could not get an IV line, and the patient had some glucose tablets and a few candy bars. Blood sugars and mental status continued to decrease, and therefore, the dialysis center called 911, and on arrival to the Emergency Room, he has a [place] coma scale of 6 according to EMS on arrival to the scene. Apparently by the time he arrived to the Emergency Room of [facility], his blood sugar was 33. He had an IV line and was given 50 mL of 50% dextrose, and his blood sugar has risen from 266, and his [place] coma scale was up to 15. He is not complaining of any other symptoms, such as chest pain, shortness of breath, nausea, vomiting, or abdominal pain. His labs were done and were unremarkable. His potassium was low at 2.8. However, he had just finished dialysis, and therefore, the patient was not given any potassium, and given that, he has just finished his hemodialysis, a decision was made to admit him for observation to [facility] to make sure that his blood sugar remains stable, and I actually held all his short-acting insulin and continued with his Lantus insulin, and once his blood sugar stabilizes, we will probably [facility]. PAST MEDICAL HISTORY: Significant for chronic obstructive pulmonary disease, type 2 diabetes, end-stage renal failure, on hemodialysis. He has also peripheral vascular disease, status post right below-knee amputation. He has also pressure ulcer in his left heel, and he also has multiple wounds on his left foot. PAST SURGICAL HISTORY: Significant for left hip replacement and arteriovenous fistula placement in his right arm. FAMILY HISTORY: Positive for diabetes and hypertension. SOCIAL HISTORY: He is , lives with his family. He does not smoke anymore. He is an ex-smoker, does not drink alcohol. REVIEW OF SYSTEMS: As per history of present illness. PHYSICAL EXAMINATION: GENERAL: On arrival to the Emergency Room, the patient was pale, somewhat cachectic, but no jaundice, cyanosis, or thyromegaly. No jugular venous distention. No limb edema. VITAL SIGNS: His heart rate was 56, blood pressure was 176/71, temperature was 96.4, respiratory rate was 20, and oxygen saturation was 100% on 2 liters of oxygen. HEAD, EYES, EARS, NOSE, AND THROAT: Normocephalic and atraumatic. NECK: Supple. HEART: Showed normal first and second heart sounds. No gallop or murmur. CHEST: Shows central trachea, equal bilateral chest expansion, air entry, vesicular breath sounds with a few bilateral basal crepitation. I could not appreciate any rhonchi. ABDOMEN: Distended, soft, and nontender. NEUROLOGIC: He was somewhat lethargic but arousable. Once his blood sugar improved, he became more awake, alert, and responding appropriately. All cranial nerves intact. He moves upper extremities without difficulty. He has right above-knee amputation with a stump wound healing nicely. He has also wounds on the left heel and also multiple wounds on his left foot, mostly on the upper aspect of the toes. LABORATORY DATA: On arrival showed a white cell count of 3400, hemoglobin 8.2, hematocrit 25, MCV 95, and platelet count of 146,000. His blood sugar was 33. Once he was given 50 mL of 50% dextrose, blood sugar michael to 166. His chemistry showed a serum sodium 136, potassium 2.8, chloride 98, bicarbonate 33, anion gap of 5, BUN 9, and creatinine 1.6. Estimated GFR was 44 mL per minute. His glucose 129, calcium was 8.5, and total bilirubin was 1.8. Magnesium was 1.8. Total bilirubin, AST, and ALT were normal. Alkaline phosphatase slightly elevated. Total protein 6.1 and albumin 2.3. His coronavirus by rapid testing was negative. The testing by PCR was still pending at the time of my examination. The plan is basically to monitor his blood sugar. I held his NovoLog insulin. Continue with his Lantus insulin. He is also on following medications. He is on ipratropium bromide, albuterol sulfate in 3 mL by nebulizer 4 times a day, ferrous sulfate 325 mg daily, atorvastatin calcium 10 mg at bedtime, and omega 3 fatty acids 1000 mg once a day. He is on metoprolol succinate 25 mg, takes half a tablet once a day; amlodipine besylate 10 mg once a day, aspirin 81 mg once a day, trazodone 100 mg once a day, Ambien 5 mg at bedtime, calcium acetate 667 mg, he takes 2 tablets 3 times a day with meals. He is on calcium. He is on furosemide 80 mg twice a day, budesonide 0.5 mg 2 mL by nebulizer twice a day. He is on Colace 100 mg twice a day, Lantus insulin 15 units at bedtime, Humalog insulin 20 units subcutaneously 3 times a day, levothyroxine 200 mcg once a day, folic acid with vitamin C one tablet once a day, and ascorbic acid 500 mg daily. ASSESSMENT AND PLAN: In summary, this is a 61-year-old male patient with end-stage renal disease, on hemodialysis, on Wednesday, Wednesday, and Wednesday, who presented to the [facility] Emergency Room with hypoglycemia. His blood sugar at the dialysis unit was only 22. On arrival to the Emergency Room, was 33. The patient was given an amp of 50% dextrose, and his blood sugar stabilized. We will continue to monitor his blood sugar overnight and might have to cut down on his NovoLog, and if his blood sugar remains stable, he might be able to be discharged back to his health resort with some adjustment to his insulin. LI/JESENIA/NAI DR: Jesus TID: [id number]
[2021-07-03] MEDS: BUDESONIDE 0.5 MG/2 ML NEBU NEB SCH (12:35)
--- NOTE | 2021-07-03 13:32 | NUR ---
Nursing discharge note Pt discharged at 1332 via ems to [facility] pt given written and verbal instructions with instructions given to facility as well
--- NOTE | 2021-07-03 23:51 | PN ---
DATE: 07/03/2021 SUBJECTIVE: The patient is resting, slightly propped up in bed, markedly congested. The cough seems to be moist. He has also markedly swollen right upper extremity and that he is unable to move. His blood sugar is still within acceptable range. He has wounds on his left heel and multiple toes on the left foot also, although the wound on the stump itself looks better. PHYSICAL EXAMINATION: GENERAL: When I examined him, he was pale, markedly cachectic, but not jaundice or cyanosed, no lymphadenopathy, no thyromegaly, no jugular venous distention. No lower limb edema. VITAL SIGNS: Her heart rate was 60, blood pressure was 154/98, respiratory rate was 18 and oxygen saturation was 100% on 4 liters of oxygen. HEAD, EYES, EARS, NOSE, AND THROAT: Normocephalic, atraumatic. NECK: Supple. HEART: Showed normal first and second heart sounds, no gallop, rub or murmur. CHEST: Shows central trachea, equal reduced expansion, reduced air entry, vesicular breath sounds with bilateral basal crepitation. I could not appreciate any rhonchi. ABDOMEN: Scaphoid, soft, nontender. NEUROLOGIC: He is awake, alert, responding appropriately. Cranial nerves intact. He moves left upper extremity to much good extent than his right upper extremity which is markedly swollen, has an arteriovenous fistula in his right upper extremity. He apparently has underlying fracture of the right proximal humerus. ASSESSMENT AND PLAN: When we asked him, the patient finally has admitted that he has fallen in February and has been unable to use his right upper extremity since then. His chest x-ray showed that the patient has cardiomegaly, bilateral hazy ground glass infiltrates or edema with worsening compared to prior study. He has a mild increased right pleural effusion on the right proximal humerus fracture. Given that he continued to be short of breath with recurrent bouts of cough that seemed to be moist. His x-ray showed that he is fluid overloaded and he has wounds and broken proximal humerus, a decision was made to transfer him to [facility] to consult the barrel bander, orthopedic surgeon and wound care team and decide on further management accordingly. I have discontinued his Humalog insulin start him on a low dose sliding scale before meals, continued the Lantus insulin and meanwhile, continue with all other medications, although his blood pressure was somewhat low and might have to cut down some of his antihypertensive medication. FINAL DISCHARGE DIAGNOSES: 1. Hypoglycemia. 2. End-stage renal disease, on hemodialysis Wednesday, Wednesday, Wednesday. 3. Brittle diabetes. 4. Peripheral vascular disease, status post right below-knee amputation. 5. Multiple wounds on his left heel and multiple toes in the left foot. 6. Chronic obstructive pulmonary disease. 7. Hypothyroidism. 8. Hyperlipidemia. LI/MELVIN DR: Jessu TID: [id number]
== END 2021-07-03 14:18 | disposition short-term general hospital (02) | DRG 637 ==
LOC: ER 11:09 → 1 SOUTH 15:10
PROVIDERS: ADMIT Internal Medicine; ATTEND Internal Medicine
DX: E11.649 Type 2 diabetes mellitus with hypoglycemia without coma (principal); E43 Unspecified severe protein-calorie malnutrition; J90 Pleural effusion, not elsewhere classified; E11.22 Type 2 diabetes mellitus with diabetic chronic kidney disease; E11.51 Type 2 diabetes mellitus with diabetic peripheral angiopathy without gangrene; E03.9 Hypothyroidism, unspecified; N18.6 End stage renal disease; Z96.642 Presence of left artificial hip joint; J44.9 Chronic obstructive pulmonary disease, unspecified; E78.5 Hyperlipidemia, unspecified; Z20.822 Contact with and (suspected) exposure to COVID-19; E87.70 Fluid overload, unspecified; Z83.3 Family history of diabetes mellitus; Z87.891 Personal history of nicotine dependence; Z89.511 Acquired absence of right leg below knee; Z99.2 Dependence on renal dialysis; Z82.49 Family history of ischemic heart disease and other diseases of the circulatory system; Z68.20 Body mass index [BMI] 20.0-20.9, adult
CPT/HCPCS: 36415; 71045; 80053; 82947; 83735; 85025; 87426; 93005; 94640; 96374; J1815; U0003; 99285-25